=== PATIENT | male | born 1940 | race Caucasian/White ===

== ENCOUNTER 2023-09-04 11:19 | Inpatient (IN) | payer MEDICARE ==
[2023-09-04] MEDS ORDERED: cefTRIAXone 2 GM Vial IVPUSH ONE (11:26)
[2023-09-04] MEDS ORDERED: Ondansetron 4 MG Tab.DIS PO PRN (11:29)
[2023-09-04] MEDS ORDERED: Sodium Chloride 0.9% 10 ML Syringe FLUSH PRN (11:29)
[2023-09-04] MEDS ORDERED: Ondansetron 4 MG/2 ML SDV IV PRN (11:29)
[2023-09-04 12:18] LABS: BASOPHILS PERCENT AUTO 0.2 % (0.2-1.2); EOSINOPHILS PERCENT AUTO 0.1 % (0.0-4.0); HEMATOCRIT 38.2 % (40.0-52.0); HEMOGLOBIN 12.7 g/dL (14.0-18.0); LYMPHOCYTES ABSOLUTE AUTO 0.9 x10^3/uL (1.0-4.8); LYMPHOCYTES PERCENT AUTO 4.5 % (25.0-50.0); MEAN CORPUSCULAR HEMOGLOBIN 34.1 pg (26.0-32.0); MEAN CORPUSCULAR HGB CONC 33.2 g/dL (32.0-36.0); MEAN CORPUSCULAR VOLUME 102.7 fL (78.0-93.0); MONOCYTES ABSOLUTE AUTO 1.3 x10^3/uL (0.0-0.8); MONOCYTES PERCENT AUTO 6.8 % (2.0-11.0); NEUTROPHILS ABSOLUTE AUTO 17.2 x10^3/uL (1.8-7.7); NEUTROPHILS PERCENT AUTO 87.9 % (50.0-80.0); PLATELET COUNT,PLT 202 x10^3/uL (130-400); RED BLOOD CELL COUNT 3.72 x10^6/uL (4.5-6.0)
[2023-09-04] MEDS: Acetaminophen 325 MG Tab PO PRN ×2 (12:32→17:38)
[2023-09-04 12:33] LABS: WHITE BLOOD CELL COUNT,WBC 19.6 x10^3/uL (4.0-10.0)
[2023-09-04 12:36] LABS: A/G RATIO 0.89; ALANINE AMINOTRANSFERASE,ALT 18 U/L (16-63); ALBUMIN 3.2 g/dL (3.4-5.0); ALKALINE PHOSPHATASE 95 U/L (46-116); ANION GAP 12.9 mmol/L (5-15); ASPARTATE AMNIOTRANSFERASE,AST 17 U/L (15-37); BILIRUBIN TOTAL 3.1 mg/dL (0.2-1.0); BLOOD UREA NITROGEN,BUN 29 mg/dL (7-18); C-REACTIVE PROTEIN 14.92 mg/dL (<=0.50); CALCIUM 9.7 mg/dL (8.5-10.1); CARBON DIOXIDE,CO2 28 mmol/L (21-32); CHLORIDE,CL 103 mmol/L (98-107); CREATININE 1.2 mg/dL (0.70-1.30); ESTIMATED GFR 60 mL/min (>=60); GLUCOSE RANDOM 110 mg/dL (70-99); MAGNESIUM 2.1 mg/dL (1.8-2.4); POTASSIUM,K 3.9 mmol/L (3.5-5.1); PROTEIN TOTAL,TP 6.8 g/dL (6.4-8.2); SODIUM,NA 140 mmol/L (136-145)
[2023-09-04 12:55] LABS: APPEARANCE,URINE TURBID (CLEAR); BILIRUBIN,URINE LARGE (NEGATIVE); COLOR,URINE BROWN (YELLOW); GLUCOSE,URINE 100 mg/dL (NEGATIVE); KETONES,URINE 15 mg/dL (NEGATIVE); LEUKOCYTE ESTERASE,URINE LARGE (NEGATIVE); NITRITE,URINE POSITIVE (NEGATIVE); OCCULT BLOOD,URINE LARGE (NEGATIVE); PH,URINE 5.5 (5.0-8.0); PROTEIN,URINE >=300 mg/dL (NEGATIVE); UROBILINOGEN,URINE >=8.0 EU/dL (0.2)
[2023-09-04 13:01] LABS: CORONAVIRUS COVID-19 NAA NEGATIVE (NEGATIVE); INFLUENZA A NAA NEGATIVE (NEGATIVE); INFLUENZA B NAA NEGATIVE (NEGATIVE); RESPIRATORY SYNCYTIAL VIR NAA NEGATIVE (NEGATIVE)
[2023-09-04 13:06] LABS: RBC,URINE >100 /HPF (NOT SEEN); WBC,URINE >100 /HPF (NOT SEEN)
[2023-09-04 13:07] LABS: AMORPHOUS SEDIMENT,URINE OCCASIONAL; BACTERIA,URINE MANY /HPF (NOT SEEN); MUCUS,URINE MODERATE /LPF (NOT SEEN); SQUAMOUS EPITHELIAL CELLS,UR RARE /HPF (NOT SEEN)
[2023-09-04] MEDS ORDERED: Sodium Chloride 0.9% 1,000 ML IV SCH (13:45)
[2023-09-04 13:57] LABS: LACTIC ACID 1.3 mmol/L (0.4-2.0)
[2023-09-04] MEDS: Tamsulosin 0.4 MG Cap.ER PO SCH (17:37)
[2023-09-04] MEDS: Finasteride 5 MG Tab PO SCH (17:38)
[2023-09-04] MEDS: Simvastatin 20 MG Tab PO SCH (20:19)
[2023-09-05 07:15] LABS: BASOPHILS PERCENT AUTO 0.1 % (0.2-1.2); EOSINOPHILS ABSOLUTE AUTO 0.1 x10^3/uL (0.0-0.5); EOSINOPHILS PERCENT AUTO 0.7 % (0.0-4.0); HEMATOCRIT 33.6 % (40.0-52.0); HEMOGLOBIN 11.3 g/dL (14.0-18.0); IMMATURE GRAN ABSOLUTE AUTO 0.09 x10^3/uL (0.00-0.07); LYMPHOCYTES ABSOLUTE AUTO 1.3 x10^3/uL (1.0-4.8); MEAN CORPUSCULAR HEMOGLOBIN 34.3 pg (26.0-32.0); MEAN CORPUSCULAR HGB CONC 33.6 g/dL (32.0-36.0); MEAN CORPUSCULAR VOLUME 102.1 fL (78.0-93.0); MONOCYTES ABSOLUTE AUTO 1.3 x10^3/uL (0.0-0.8); MONOCYTES PERCENT AUTO 7.7 % (2.0-11.0); NEUTROPHILS ABSOLUTE AUTO 13.8 x10^3/uL (1.8-7.7); PLATELET COUNT,PLT 172 x10^3/uL (130-400); RED BLOOD CELL COUNT 3.29 x10^6/uL (4.5-6.0); WHITE BLOOD CELL COUNT,WBC 16.6 x10^3/uL (4.0-10.0)
[2023-09-05 07:38] LABS: A/G RATIO 0.75; ALBUMIN 2.4 g/dL (3.4-5.0); BILIRUBIN TOTAL 1.6 mg/dL (0.2-1.0); CALCIUM 9.2 mg/dL (8.5-10.1); EST CRCL DRUG DOSING (CG) 49.54 mL/min; POTASSIUM,K 3.9 mmol/L (3.5-5.1); PROTEIN TOTAL,TP 5.6 g/dL (6.4-8.2)
[2023-09-05 07:40] LABS: BILIRUBIN DIRECT 0.44 mg/dL (0.00-0.20); C-REACTIVE PROTEIN 16.83 mg/dL (<=0.50)
[2023-09-05 07:44] LABS: ANION GAP 11.9 mmol/L (5-15)
[2023-09-05] MEDS: Metoprolol Tartrate 50 MG Tab PO SCH (10:29)
[2023-09-05] MEDS: Finasteride 5 MG Tab PO SCH (10:32)
[2023-09-05] MEDS: Tamsulosin 0.4 MG Cap.ER PO SCH (10:32)
[2023-09-05] MEDS: cefTRIAXone 1 GM Vial IVPUSH SCH (10:35)
[2023-09-05] MEDS: Miconazole 2% Top Powder 45 GM Container TOP SCH ×2 (10:43→21:01)
[2023-09-05] MEDS: Acetaminophen 325 MG Tab PO PRN (21:00)
[2023-09-05] MEDS: Simvastatin 20 MG Tab PO SCH (21:00)
[2023-09-05] MEDS: amLODIPine 5 MG Tab PO SCH (21:01)
[2023-09-06 08:23] LABS: BASOPHILS ABSOLUTE AUTO 0.1 x10^3/uL (0.0-0.2); BASOPHILS PERCENT AUTO 0.4 % (0.2-1.2); EOSINOPHILS ABSOLUTE AUTO 0.2 x10^3/uL (0.0-0.5); EOSINOPHILS PERCENT AUTO 1.7 % (0.0-4.0); HEMATOCRIT 36.3 % (40.0-52.0); HEMOGLOBIN 12.2 g/dL (14.0-18.0); IMMATURE GRAN ABSOLUTE AUTO 0.08 x10^3/uL (0.00-0.07); LYMPHOCYTES ABSOLUTE AUTO 1.1 x10^3/uL (1.0-4.8); LYMPHOCYTES PERCENT AUTO 9.4 % (25.0-50.0); MEAN CORPUSCULAR HEMOGLOBIN 34.3 pg (26.0-32.0); MEAN CORPUSCULAR HGB CONC 33.6 g/dL (32.0-36.0); MONOCYTES ABSOLUTE AUTO 1.2 x10^3/uL (0.0-0.8); MONOCYTES PERCENT AUTO 10.9 % (2.0-11.0); NEUTROPHILS ABSOLUTE AUTO 8.6 x10^3/uL (1.8-7.7); NEUTROPHILS PERCENT AUTO 76.9 % (50.0-80.0); PLATELET COUNT,PLT 189 x10^3/uL (130-400); RED BLOOD CELL COUNT 3.56 x10^6/uL (4.5-6.0); WHITE BLOOD CELL COUNT,WBC 11.2 x10^3/uL (4.0-10.0)
[2023-09-06 08:45] LABS: A/G RATIO 0.64; ALBUMIN 2.3 g/dL (3.4-5.0); CALCIUM 9.4 mg/dL (8.5-10.1); CREATININE 0.9 mg/dL (0.70-1.30); EST CRCL DRUG DOSING (CG) 55.05 mL/min; POTASSIUM,K 4.2 mmol/L (3.5-5.1); PROTEIN TOTAL,TP 5.9 g/dL (6.4-8.2)
[2023-09-06 08:46] LABS: ANION GAP 9.2 mmol/L (5-15)
[2023-09-06] MEDS: Tamsulosin 0.4 MG Cap.ER PO SCH (09:01)
[2023-09-06] MEDS: Finasteride 5 MG Tab PO SCH (09:02)
[2023-09-06] MEDS: Metoprolol Tartrate 50 MG Tab PO SCH (09:03)
[2023-09-06] MEDS: cefTRIAXone 1 GM Vial IVPUSH SCH (09:05)
[2023-09-06] MEDS: Miconazole 2% Top Powder 45 GM Container TOP SCH ×2 (09:12→20:39)
[2023-09-06] MEDS: Simvastatin 20 MG Tab PO SCH (20:39)
[2023-09-06] MEDS: amLODIPine 5 MG Tab PO SCH (20:39)
[2023-09-07] MEDS: cefTRIAXone 1 GM Vial IVPUSH SCH (08:43)
[2023-09-07] MEDS: Metoprolol Tartrate 50 MG Tab PO SCH (08:48)
[2023-09-07] MEDS: Tamsulosin 0.4 MG Cap.ER PO SCH (08:48)
[2023-09-07] MEDS: Finasteride 5 MG Tab PO SCH (08:50)
[2023-09-07] MEDS: Miconazole 2% Top Powder 45 GM Container TOP SCH ×2 (08:52→20:14)
[2023-09-07] MEDS: amLODIPine 5 MG Tab PO SCH (20:14)
[2023-09-07] MEDS: Simvastatin 20 MG Tab PO SCH (20:14)
[2023-09-07] MEDS: Acetaminophen 325 MG Tab PO PRN (20:14)
[2023-09-07] MEDS ORDERED: Enalapril 5 MG Tab PO ONE (20:15)
[2023-09-08] MEDS ORDERED: Amoxicillin/Clavulanate K 875-125 MG Tab PO SCH (07:00)
[2023-09-08 07:09] LABS: BASOPHILS ABSOLUTE AUTO 0.1 x10^3/uL (0.0-0.2); BASOPHILS PERCENT AUTO 0.5 % (0.2-1.2); EOSINOPHILS ABSOLUTE AUTO 0.3 x10^3/uL (0.0-0.5); EOSINOPHILS PERCENT AUTO 2.9 % (0.0-4.0); HEMATOCRIT 34.4 % (40.0-52.0); HEMOGLOBIN 11.8 g/dL (14.0-18.0); IMMATURE GRAN ABSOLUTE AUTO 0.13 x10^3/uL (0.00-0.07); LYMPHOCYTES ABSOLUTE AUTO 1.4 x10^3/uL (1.0-4.8); LYMPHOCYTES PERCENT AUTO 12.8 % (25.0-50.0); MEAN CORPUSCULAR HEMOGLOBIN 34.8 pg (26.0-32.0); MEAN CORPUSCULAR HGB CONC 34.3 g/dL (32.0-36.0); MEAN CORPUSCULAR VOLUME 101.5 fL (78.0-93.0); MONOCYTES ABSOLUTE AUTO 1.3 x10^3/uL (0.0-0.8); MONOCYTES PERCENT AUTO 11.6 % (2.0-11.0); NEUTROPHILS ABSOLUTE AUTO 7.8 x10^3/uL (1.8-7.7); PLATELET COUNT,PLT 193 x10^3/uL (130-400); RED BLOOD CELL COUNT 3.39 x10^6/uL (4.5-6.0); WHITE BLOOD CELL COUNT,WBC 10.9 x10^3/uL (4.0-10.0)
[2023-09-08 07:49] LABS: A/G RATIO 0.61; ALBUMIN 2.2 g/dL (3.4-5.0); BILIRUBIN TOTAL 0.8 mg/dL (0.2-1.0); CALCIUM 9.8 mg/dL (8.5-10.1); CREATININE 0.9 mg/dL (0.70-1.30); EST CRCL DRUG DOSING (CG) 55.05 mL/min; POTASSIUM,K 4.3 mmol/L (3.5-5.1); PROTEIN TOTAL,TP 5.8 g/dL (6.4-8.2)
[2023-09-08 07:50] LABS: ANION GAP 10.3 mmol/L (5-15)
[2023-09-08] MEDS: Amoxicillin/Clavulanate K 875-125 MG Tab PO SCH ×2 (09:09→20:21)
[2023-09-08] MEDS: Finasteride 5 MG Tab PO SCH (09:09)
[2023-09-08] MEDS: Tamsulosin 0.4 MG Cap.ER PO SCH (09:09)
[2023-09-08] MEDS: Miconazole 2% Top Powder 45 GM Container TOP SCH ×2 (09:10→20:24)
[2023-09-08] MEDS: Simvastatin 20 MG Tab PO SCH (20:21)
[2023-09-08] MEDS: amLODIPine 5 MG Tab PO SCH (20:21)
[2023-09-09] MEDS: Amoxicillin/Clavulanate K 875-125 MG Tab PO SCH (09:09)
[2023-09-09] MEDS: Tamsulosin 0.4 MG Cap.ER PO SCH (09:11)
[2023-09-09] MEDS: Miconazole 2% Top Powder 45 GM Container TOP SCH (09:12)
[2023-09-09] MEDS: Finasteride 5 MG Tab PO SCH (09:12)
[2023-09-09 13:41] VITALS: BP 133/62; PULSE 64
[2023-09-09] MEDS ORDERED: Apixaban 2.5 MG Tab PO SCH (21:00)
== END 2023-09-09 13:55 | disposition swing bed (61) | DRG 872 ==
LOC: VM.MS 11:19
PROVIDERS: ADMIT Internal Medicine; ATTEND Internal Medicine
DX: A41.51 Sepsis due to Escherichia coli [E. coli] (principal); I50.32 Chronic diastolic (congestive) heart failure; N30.01 Acute cystitis with hematuria; A41.50 Gram-negative sepsis, unspecified; M45.9 Ankylosing spondylitis of unspecified sites in spine; N21.0 Calculus in bladder; I25.10 Atherosclerotic heart disease of native coronary artery without angina pectoris; I48.0 Paroxysmal atrial fibrillation; M54.41 Lumbago with sciatica, right side; G89.29 Other chronic pain; M54.42 Lumbago with sciatica, left side; E78.5 Hyperlipidemia, unspecified; E66.01 Morbid (severe) obesity due to excess calories; I11.0 Hypertensive heart disease with heart failure; J45.20 Mild intermittent asthma, uncomplicated; G47.33 Obstructive sleep apnea (adult) (pediatric); N40.1 Benign prostatic hyperplasia with lower urinary tract symptoms; R33.8 Other retention of urine; Z79.899 Other long term (current) drug therapy; Z79.01 Long term (current) use of anticoagulants; Z88.5 Allergy status to narcotic agent; Z88.8 Allergy status to other drugs, medicaments and biological substances; Z95.1 Presence of aortocoronary bypass graft; Z98.890 Other specified postprocedural states; Z68.36 Body mass index [BMI] 36.0-36.9, adult; Z98.49 Cataract extraction status, unspecified eye; Z87.891 Personal history of nicotine dependence
CPT/HCPCS: 0241U; 36415; 51798; 71046; 80053; 81001; 82140; 82248; 82947; 83605; 83735; 85025; 86140; 87040; 87086; 87088; 87186; 95851-GO; 97110-GP; 97116-GP; 97162-GP; 97166-GO; 97535-GO; A9270-GY; J0696; J3490; J7030

== ENCOUNTER 2023-09-09 11:52 | Inpatient (IN) | payer MEDICARE ==
[2023-09-09] MEDS ORDERED: Ondansetron 4 MG Tab.DIS PO PRN (11:55)
[2023-09-09] MEDS ORDERED: Acetaminophen 325 MG Tab PO PRN (11:55)
[2023-09-09] MEDS: Miconazole 2% Top Powder 45 GM Container TOP SCH (20:18)
[2023-09-09] MEDS: Apixaban 2.5 MG Tab PO SCH (20:19)
[2023-09-09] MEDS: Amoxicillin/Clavulanate K 875-125 MG Tab PO SCH (20:19)
[2023-09-09] MEDS: Simvastatin 10 MG Tab PO SCH (20:22)
[2023-09-09] MEDS ORDERED: amLODIPine 2.5 MG Tab PO SCH (21:00)
[2023-09-10] MEDS: Apixaban 2.5 MG Tab PO SCH ×3 (08:50→20:54)
[2023-09-10] MEDS: Finasteride 5 MG Tab PO SCH (08:51)
[2023-09-10] MEDS: Amoxicillin/Clavulanate K 875-125 MG Tab PO SCH ×2 (08:51→19:28)
[2023-09-10] MEDS: Tamsulosin 0.4 MG Cap.ER PO SCH (08:51)
[2023-09-10] MEDS: Miconazole 2% Top Powder 45 GM Container TOP SCH ×3 (08:53→20:54)
[2023-09-10] MEDS: AMLODIPINE PO SCH ×4 (19:30→20:54)
[2023-09-10] MEDS: Simvastatin 10 MG Tab PO SCH ×2 (19:30→20:55)
[2023-09-11 07:04] LABS: BASOPHILS ABSOLUTE AUTO 0.1 x10^3/uL (0.0-0.2); BASOPHILS PERCENT AUTO 0.7 % (0.2-1.2); EOSINOPHILS ABSOLUTE AUTO 0.5 x10^3/uL (0.0-0.5); EOSINOPHILS PERCENT AUTO 5.4 % (0.0-4.0); HEMATOCRIT 36.3 % (40.0-52.0); HEMOGLOBIN 12.1 g/dL (14.0-18.0); IMMATURE GRAN ABSOLUTE AUTO 0.26 x10^3/uL (0.00-0.07); LYMPHOCYTES ABSOLUTE AUTO 1.5 x10^3/uL (1.0-4.8); LYMPHOCYTES PERCENT AUTO 18.3 % (25.0-50.0); MEAN CORPUSCULAR HGB CONC 33.3 g/dL (32.0-36.0); MONOCYTES ABSOLUTE AUTO 0.6 x10^3/uL (0.0-0.8); MONOCYTES PERCENT AUTO 7.2 % (2.0-11.0); NEUTROPHILS ABSOLUTE AUTO 5.5 x10^3/uL (1.8-7.7); NEUTROPHILS PERCENT AUTO 65.3 % (50.0-80.0); PLATELET COUNT,PLT 285 x10^3/uL (130-400); RED BLOOD CELL COUNT 3.56 x10^6/uL (4.5-6.0); WHITE BLOOD CELL COUNT,WBC 8.4 x10^3/uL (4.0-10.0)
[2023-09-11 07:14] LABS: CALCIUM 9.9 mg/dL (8.5-10.1); CREATININE 0.9 mg/dL (0.70-1.30); EST CRCL DRUG DOSING (CG) 52.99 mL/min; POTASSIUM,K 4.3 mmol/L (3.5-5.1)
[2023-09-11 07:17] LABS: ANION GAP 11.3 mmol/L (5-15)
[2023-09-11] MEDS: Apixaban 2.5 MG Tab PO SCH ×2 (08:54→20:51)
[2023-09-11] MEDS: Amoxicillin/Clavulanate K 875-125 MG Tab PO SCH ×2 (08:57→20:50)
[2023-09-11] MEDS: Tamsulosin 0.4 MG Cap.ER PO SCH (08:57)
[2023-09-11] MEDS: Miconazole 2% Top Powder 45 GM Container TOP SCH ×2 (08:58→20:51)
[2023-09-11] MEDS: Finasteride 5 MG Tab PO SCH (08:58)
[2023-09-11] MEDS: Simvastatin 10 MG Tab PO SCH (20:51)
[2023-09-11] MEDS: AMLODIPINE PO SCH ×2 (20:51)
[2023-09-12] MEDS: Amoxicillin/Clavulanate K 875-125 MG Tab PO SCH ×2 (08:28→17:50)
[2023-09-12] MEDS: Apixaban 2.5 MG Tab PO SCH ×2 (08:30→20:21)
[2023-09-12] MEDS: Tamsulosin 0.4 MG Cap.ER PO SCH (08:30)
[2023-09-12] MEDS: Miconazole 2% Top Powder 45 GM Container TOP SCH ×2 (08:31→20:29)
[2023-09-12] MEDS: Finasteride 5 MG Tab PO SCH (08:31)
[2023-09-12] MEDS ORDERED: Bisacodyl 10 MG Supp RECTAL PRN (10:31)
[2023-09-12] MEDS: Sennosides/Docusate Sodium 50-8.6 MG Tab PO SCH ×2 (11:44→20:30)
[2023-09-12] MEDS: AMLODIPINE PO SCH ×2 (20:20)
[2023-09-12] MEDS: Simvastatin 10 MG Tab PO SCH (20:21)
[2023-09-13] MEDS: Amoxicillin/Clavulanate K 875-125 MG Tab PO SCH ×2 (08:47→17:56)
[2023-09-13] MEDS: Tamsulosin 0.4 MG Cap.ER PO SCH (08:48)
[2023-09-13] MEDS: Apixaban 2.5 MG Tab PO SCH ×2 (08:49→20:26)
[2023-09-13] MEDS: Sennosides/Docusate Sodium 50-8.6 MG Tab PO SCH ×2 (08:49→20:26)
[2023-09-13] MEDS: Finasteride 5 MG Tab PO SCH (08:50)
[2023-09-13] MEDS: Miconazole 2% Top Powder 45 GM Container TOP SCH ×2 (08:51→20:26)
[2023-09-13] MEDS: AMLODIPINE PO SCH ×2 (20:26)
[2023-09-13] MEDS: Simvastatin 10 MG Tab PO SCH (20:27)
[2023-09-14] MEDS: Miconazole 2% Top Powder 45 GM Container TOP SCH ×2 (08:32→20:33)
[2023-09-14] MEDS: Amoxicillin/Clavulanate K 875-125 MG Tab PO SCH ×2 (08:32→17:25)
[2023-09-14] MEDS: Apixaban 2.5 MG Tab PO SCH ×2 (08:34→20:32)
[2023-09-14] MEDS: Finasteride 5 MG Tab PO SCH (08:34)
[2023-09-14] MEDS: Tamsulosin 0.4 MG Cap.ER PO SCH (08:35)
[2023-09-14] MEDS: Sennosides/Docusate Sodium 50-8.6 MG Tab PO SCH ×2 (08:35→20:33)
[2023-09-14] MEDS: AMLODIPINE PO SCH ×2 (20:32)
[2023-09-14] MEDS: Simvastatin 10 MG Tab PO SCH (20:33)
[2023-09-15] MEDS: Finasteride 5 MG Tab PO SCH (08:13)
[2023-09-15] MEDS: Apixaban 2.5 MG Tab PO SCH ×2 (08:13→20:48)
[2023-09-15] MEDS: Tamsulosin 0.4 MG Cap.ER PO SCH (08:14)
[2023-09-15] MEDS: Amoxicillin/Clavulanate K 875-125 MG Tab PO SCH ×2 (08:14→17:50)
[2023-09-15] MEDS: Sennosides/Docusate Sodium 50-8.6 MG Tab PO SCH ×2 (08:14→20:49)
[2023-09-15] MEDS: Miconazole 2% Top Powder 45 GM Container TOP SCH ×2 (08:14→20:50)
[2023-09-15] MEDS: AMLODIPINE PO SCH ×2 (20:48)
[2023-09-15] MEDS: Simvastatin 10 MG Tab PO SCH (20:49)
[2023-09-16] MEDS: Miconazole 2% Top Powder 45 GM Container TOP SCH (08:54)
[2023-09-16] MEDS: Amoxicillin/Clavulanate K 875-125 MG Tab PO SCH (08:55)
[2023-09-16] MEDS: Sennosides/Docusate Sodium 50-8.6 MG Tab PO SCH (08:55)
[2023-09-16] MEDS: Apixaban 2.5 MG Tab PO SCH (08:55)
[2023-09-16] MEDS: Tamsulosin 0.4 MG Cap.ER PO SCH (08:55)
[2023-09-16] MEDS: Finasteride 5 MG Tab PO SCH (08:55)
[2023-09-16 12:56] VITALS: BP 130/66; PULSE 65
== END 2023-09-16 14:25 | disposition home health service (06) | DRG 948 ==
LOC: VM.MS 14:01
PROVIDERS: ADMIT Internal Medicine; ATTEND Internal Medicine
DX: R53.1 Weakness (principal); N39.0 Urinary tract infection, site not specified; I50.30 Unspecified diastolic (congestive) heart failure; Z68.41 Body mass index [BMI] 40.0-44.9, adult; I48.91 Unspecified atrial fibrillation; N40.1 Benign prostatic hyperplasia with lower urinary tract symptoms; I25.10 Atherosclerotic heart disease of native coronary artery without angina pectoris; E66.01 Morbid (severe) obesity due to excess calories; M45.9 Ankylosing spondylitis of unspecified sites in spine; R00.1 Bradycardia, unspecified; I11.0 Hypertensive heart disease with heart failure; R33.9 Retention of urine, unspecified; E78.5 Hyperlipidemia, unspecified; M54.40 Lumbago with sciatica, unspecified side; G89.29 Other chronic pain; M47.819 Spondylosis without myelopathy or radiculopathy, site unspecified; G31.84 Mild cognitive impairment of uncertain or unknown etiology; Z79.01 Long term (current) use of anticoagulants; Z98.890 Other specified postprocedural states
CPT/HCPCS: 36415; 80048; 84443; 85025; 95851-GO; 97110-GP; 97116-GP; 97530-GO; 97530-GP; 97535-GO; A9270-GY

== ENCOUNTER 2023-12-04 21:54 | Inpatient (IN) | payer MEDICARE ==
[2023-12-04 22:25] LABS: BASOPHILS PERCENT AUTO 0.3 % (0.2-1.2); EOSINOPHILS ABSOLUTE AUTO 0.2 x10^3/uL (0.0-0.5); EOSINOPHILS PERCENT AUTO 1.8 % (0.0-4.0); HEMATOCRIT 39.9 % (40.0-52.0); HEMOGLOBIN 13.6 g/dL (14.0-18.0); IMMATURE GRAN ABSOLUTE AUTO 0.06 x10^3/uL (0.00-0.07); LYMPHOCYTES ABSOLUTE AUTO 0.8 x10^3/uL (1.0-4.8); LYMPHOCYTES PERCENT AUTO 6.7 % (25.0-50.0); MEAN CORPUSCULAR HEMOGLOBIN 33.2 pg (26.0-32.0); MEAN CORPUSCULAR HGB CONC 34.1 g/dL (32.0-36.0); MEAN CORPUSCULAR VOLUME 97.3 fL (78.0-93.0); MONOCYTES ABSOLUTE AUTO 0.9 x10^3/uL (0.0-0.8); NEUTROPHILS ABSOLUTE AUTO 9.5 x10^3/uL (1.8-7.7); NEUTROPHILS PERCENT AUTO 82.7 % (50.0-80.0); PLATELET COUNT,PLT 199 x10^3/uL (130-400); WHITE BLOOD CELL COUNT,WBC 11.5 x10^3/uL (4.0-10.0)
[2023-12-04] MEDS: Sodium Chloride 0.9% 1,000 ML IV ONE (22:25)
[2023-12-04 22:42] LABS: A/G RATIO 0.91; ALANINE AMINOTRANSFERASE,ALT 18 U/L (16-63); ALBUMIN 3.2 g/dL (3.4-5.0); ALKALINE PHOSPHATASE 110 U/L (46-116); ASPARTATE AMNIOTRANSFERASE,AST 20 U/L (15-37); BILIRUBIN TOTAL 1.1 mg/dL (0.2-1.0); BLOOD UREA NITROGEN,BUN 25 mg/dL (7-18); C-REACTIVE PROTEIN 3.31 mg/dL (<=0.50); CALCIUM 9.6 mg/dL (8.5-10.1); CARBON DIOXIDE,CO2 25 mmol/L (21-32); CHLORIDE,CL 104 mmol/L (98-107); CREATININE 1.3 mg/dL (0.70-1.30); GLUCOSE RANDOM 181 mg/dL (70-99); POTASSIUM,K 4.1 mmol/L (3.5-5.1); PROTEIN TOTAL,TP 6.7 g/dL (6.4-8.2); SODIUM,NA 141 mmol/L (136-145)
[2023-12-04 22:44] LABS: ANION GAP 16.1 mmol/L (5-15); ESTIMATED GFR 55 mL/min (>=60)
[2023-12-04 22:59] LABS: CORONAVIRUS COVID-19 NAA NEGATIVE (NEGATIVE); INFLUENZA A NAA NEGATIVE (NEGATIVE); INFLUENZA B NAA NEGATIVE (NEGATIVE); RESPIRATORY SYNCYTIAL VIR NAA NEGATIVE (NEGATIVE)
[2023-12-04 23:07] LABS: BILIRUBIN,URINE NEGATIVE (NEGATIVE); COLOR,URINE DARK YELLOW (YELLOW); GLUCOSE,URINE NEGATIVE (NEGATIVE); KETONES,URINE NEGATIVE (NEGATIVE); LEUKOCYTE ESTERASE,URINE NEGATIVE (NEGATIVE); NITRITE,URINE NEGATIVE (NEGATIVE); OCCULT BLOOD,URINE NEGATIVE (NEGATIVE); PROTEIN,URINE NEGATIVE (NEGATIVE); UROBILINOGEN,URINE 0.2 EU/dL (0.2)
[2023-12-04 23:08] LABS: APPEARANCE,URINE CLEAR (CLEAR)
[2023-12-04] MEDS: cefTRIAXone 1 GM Vial IVPUSH ONE (23:50)
[2023-12-04] MEDS ORDERED: Acetaminophen 325 MG Tab PO PRN (23:51)
[2023-12-05] MEDS ORDERED: Miconazole 2% Top Powder 45 GM Container TOP PRN (00:13)
[2023-12-05] MEDS ORDERED: Albuterol HFA 18 Gm Inhaler INH PRN (00:13)
[2023-12-05] MEDS ORDERED: Diclofenac Sodium 1% Gel 100 GM Tube TOP PRN (00:13)
[2023-12-05] MEDS: Azithromycin 250 MG Tab PO ONE (01:00)
[2023-12-05] MEDS: Sodium Chloride 0.9% 1,000 ML IV SCH (01:00)
[2023-12-05 06:52] LABS: BASOPHILS PERCENT AUTO 0.3 % (0.2-1.2); EOSINOPHILS ABSOLUTE AUTO 0.1 x10^3/uL (0.0-0.5); EOSINOPHILS PERCENT AUTO 0.4 % (0.0-4.0); HEMATOCRIT 35.3 % (40.0-52.0); HEMOGLOBIN 11.6 g/dL (14.0-18.0); IMMATURE GRAN ABSOLUTE AUTO 0.07 x10^3/uL (0.00-0.07); LYMPHOCYTES ABSOLUTE AUTO 1.4 x10^3/uL (1.0-4.8); LYMPHOCYTES PERCENT AUTO 9.8 % (25.0-50.0); MEAN CORPUSCULAR HEMOGLOBIN 32.6 pg (26.0-32.0); MEAN CORPUSCULAR HGB CONC 32.9 g/dL (32.0-36.0); MEAN CORPUSCULAR VOLUME 99.2 fL (78.0-93.0); MONOCYTES ABSOLUTE AUTO 1.4 x10^3/uL (0.0-0.8); MONOCYTES PERCENT AUTO 9.4 % (2.0-11.0); NEUTROPHILS ABSOLUTE AUTO 11.6 x10^3/uL (1.8-7.7); NEUTROPHILS PERCENT AUTO 79.6 % (50.0-80.0); PLATELET COUNT,PLT 183 x10^3/uL (130-400); RED BLOOD CELL COUNT 3.56 x10^6/uL (4.5-6.0); WHITE BLOOD CELL COUNT,WBC 14.6 x10^3/uL (4.0-10.0)
[2023-12-05 07:17] LABS: CREATININE 1.2 mg/dL (0.70-1.30); EST CRCL DRUG DOSING (CG) 41.28 mL/min
[2023-12-05] MEDS ORDERED: cefTRIAXone 1 GM Vial IVPUSH SCH ×2 (09:00→21:00)
[2023-12-05] MEDS: Cyanocobalamin (Vitamin B12) 1,000 MCG Tab PO SCH (09:19)
[2023-12-05] MEDS: Multivitamin Tab PO SCH (09:19)
[2023-12-05] MEDS: Finasteride 5 MG Tab PO SCH (09:19)
[2023-12-05] MEDS: Furosemide 20 MG Tab PO SCH (09:19)
[2023-12-05] MEDS: Apixaban 2.5 MG Tab PO SCH (09:19)
[2023-12-05] MEDS: Tamsulosin 0.4 MG Cap.ER PO SCH (09:19)
[2023-12-05] MEDS: Folic Acid 1 MG Tab PO SCH (09:19)
[2023-12-05] MEDS: Fluticasone Propionate Nasal Spray 9.9 ML BOTTLE NASBOTH SCH (09:20)
[2023-12-05] MEDS: Albuterol/Ipratropium 3.0-0.5 MG/3 ML Neb Soln NEB SCH (09:33)
[2023-12-05] MEDS ORDERED: Azithromycin 250 MG Tab PO SCH (13:00)
[2023-12-05] MEDS: cefTRIAXone 1 GM Vial IVPUSH SCH (13:36)
[2023-12-05] MEDS: Azithromycin 250 MG Tab PO SCH (13:36)
[2023-12-05] MEDS: Simvastatin 10 MG Tab PO SCH (20:30)
[2023-12-05] MEDS ORDERED: amLODIPine 5 MG Tab PO SCH (21:00)
[2023-12-06 07:45] LABS: BASOPHILS PERCENT AUTO 0.4 % (0.2-1.2); EOSINOPHILS ABSOLUTE AUTO 0.5 x10^3/uL (0.0-0.5); EOSINOPHILS PERCENT AUTO 4.7 % (0.0-4.0); HEMATOCRIT 36.7 % (40.0-52.0); HEMOGLOBIN 12.3 g/dL (14.0-18.0); IMMATURE GRAN ABSOLUTE AUTO 0.05 x10^3/uL (0.00-0.07); LYMPHOCYTES ABSOLUTE AUTO 1.7 x10^3/uL (1.0-4.8); LYMPHOCYTES PERCENT AUTO 16.4 % (25.0-50.0); MEAN CORPUSCULAR HEMOGLOBIN 33.1 pg (26.0-32.0); MEAN CORPUSCULAR HGB CONC 33.5 g/dL (32.0-36.0); MEAN CORPUSCULAR VOLUME 98.7 fL (78.0-93.0); MONOCYTES ABSOLUTE AUTO 1.1 x10^3/uL (0.0-0.8); MONOCYTES PERCENT AUTO 10.2 % (2.0-11.0); NEUTROPHILS PERCENT AUTO 67.8 % (50.0-80.0); PLATELET COUNT,PLT 176 x10^3/uL (130-400); RED BLOOD CELL COUNT 3.72 x10^6/uL (4.5-6.0); WHITE BLOOD CELL COUNT,WBC 10.3 x10^3/uL (4.0-10.0)
[2023-12-06 07:51] LABS: A/G RATIO 0.81; ALBUMIN 2.6 g/dL (3.4-5.0); BILIRUBIN TOTAL 1.2 mg/dL (0.2-1.0); CALCIUM 9.1 mg/dL (8.5-10.1); CREATININE 0.9 mg/dL (0.70-1.30); EST CRCL DRUG DOSING (CG) 55.05 mL/min; POTASSIUM,K 3.9 mmol/L (3.5-5.1); PROTEIN TOTAL,TP 5.8 g/dL (6.4-8.2)
[2023-12-06 07:52] LABS: ANION GAP 12.9 mmol/L (5-15)
[2023-12-07 09:08] LABS: BASOPHILS ABSOLUTE AUTO 0.1 x10^3/uL (0.0-0.2); BASOPHILS PERCENT AUTO 0.6 % (0.2-1.2); EOSINOPHILS ABSOLUTE AUTO 0.5 x10^3/uL (0.0-0.5); EOSINOPHILS PERCENT AUTO 5.5 % (0.0-4.0); HEMATOCRIT 36.2 % (40.0-52.0); IMMATURE GRAN ABSOLUTE AUTO 0.08 x10^3/uL (0.00-0.07); LYMPHOCYTES PERCENT AUTO 22.3 % (25.0-50.0); MEAN CORPUSCULAR HEMOGLOBIN 32.7 pg (26.0-32.0); MEAN CORPUSCULAR HGB CONC 33.1 g/dL (32.0-36.0); MEAN CORPUSCULAR VOLUME 98.6 fL (78.0-93.0); MONOCYTES ABSOLUTE AUTO 0.9 x10^3/uL (0.0-0.8); MONOCYTES PERCENT AUTO 10.3 % (2.0-11.0); NEUTROPHILS ABSOLUTE AUTO 5.3 x10^3/uL (1.8-7.7); NEUTROPHILS PERCENT AUTO 60.4 % (50.0-80.0); PLATELET COUNT,PLT 193 x10^3/uL (130-400); RED BLOOD CELL COUNT 3.67 x10^6/uL (4.5-6.0); WHITE BLOOD CELL COUNT,WBC 8.7 x10^3/uL (4.0-10.0)
[2023-12-07 09:18] LABS: A/G RATIO 0.76; ALBUMIN 2.5 g/dL (3.4-5.0); BILIRUBIN TOTAL 0.8 mg/dL (0.2-1.0); CALCIUM 9.3 mg/dL (8.5-10.1); EST CRCL DRUG DOSING (CG) 49.54 mL/min; POTASSIUM,K 3.8 mmol/L (3.5-5.1); PROTEIN TOTAL,TP 5.8 g/dL (6.4-8.2)
[2023-12-07 09:19] LABS: ANION GAP 14.8 mmol/L (5-15)
[2023-12-08 07:00] LABS: BASOPHILS ABSOLUTE AUTO 0.1 x10^3/uL (0.0-0.2); BASOPHILS PERCENT AUTO 0.6 % (0.2-1.2); EOSINOPHILS ABSOLUTE AUTO 0.5 x10^3/uL (0.0-0.5); HEMATOCRIT 39.3 % (40.0-52.0); IMMATURE GRAN ABSOLUTE AUTO 0.08 x10^3/uL (0.00-0.07); LYMPHOCYTES ABSOLUTE AUTO 1.9 x10^3/uL (1.0-4.8); MEAN CORPUSCULAR HEMOGLOBIN 32.5 pg (26.0-32.0); MEAN CORPUSCULAR HGB CONC 33.1 g/dL (32.0-36.0); MEAN CORPUSCULAR VOLUME 98.3 fL (78.0-93.0); MONOCYTES ABSOLUTE AUTO 0.7 x10^3/uL (0.0-0.8); MONOCYTES PERCENT AUTO 9.1 % (2.0-11.0); NEUTROPHILS ABSOLUTE AUTO 4.9 x10^3/uL (1.8-7.7); NEUTROPHILS PERCENT AUTO 60.3 % (50.0-80.0); PLATELET COUNT,PLT 210 x10^3/uL (130-400); WHITE BLOOD CELL COUNT,WBC 8.1 x10^3/uL (4.0-10.0)
[2023-12-08 07:23] LABS: A/G RATIO 0.72; ALBUMIN 2.6 g/dL (3.4-5.0); BILIRUBIN TOTAL 0.8 mg/dL (0.2-1.0); CALCIUM 9.4 mg/dL (8.5-10.1); CREATININE 0.9 mg/dL (0.70-1.30); EST CRCL DRUG DOSING (CG) 55.05 mL/min; POTASSIUM,K 3.9 mmol/L (3.5-5.1); PROTEIN TOTAL,TP 6.2 g/dL (6.4-8.2)
[2023-12-08 07:24] LABS: ANION GAP 12.9 mmol/L (5-15)
[2023-12-08 08:53] VITALS: BP 176/72; PULSE 63
[2023-12-08] MEDS: amLODIPine 5 MG Tab PO SCH (08:58)
[2023-12-08] MEDS: Furosemide 40 MG Tab PO SCH (08:59)
[2023-12-08] MEDS: Cefuroxime 250 MG Tab PO SCH (09:00)
[2023-12-08] MEDS: Azithromycin 250 MG Tab PO SCH (09:00)
[2023-12-08] MEDS ORDERED: Finasteride 5 MG Tab PO SCH (21:00)
== END 2023-12-08 10:15 | disposition home health service (06) | DRG 871 ==
LOC: VM.ED 21:54 → VM.MS 23:25
PROVIDERS: ADMIT Family Medicine; ATTEND Internal Medicine
DX: A41.9 Sepsis, unspecified organism (principal); I50.33 Acute on chronic diastolic (congestive) heart failure; J18.9 Pneumonia, unspecified organism; D84.9 Immunodeficiency, unspecified; I48.91 Unspecified atrial fibrillation; E66.9 Obesity, unspecified; J44.0 Chronic obstructive pulmonary disease with (acute) lower respiratory infection; I25.10 Atherosclerotic heart disease of native coronary artery without angina pectoris; E78.00 Pure hypercholesterolemia, unspecified; M19.90 Unspecified osteoarthritis, unspecified site; M45.9 Ankylosing spondylitis of unspecified sites in spine; E66.01 Morbid (severe) obesity due to excess calories; I11.0 Hypertensive heart disease with heart failure; I48.0 Paroxysmal atrial fibrillation; J45.20 Mild intermittent asthma, uncomplicated; N40.0 Benign prostatic hyperplasia without lower urinary tract symptoms; G31.84 Mild cognitive impairment of uncertain or unknown etiology; H91.90 Unspecified hearing loss, unspecified ear; G47.33 Obstructive sleep apnea (adult) (pediatric); Z88.8 Allergy status to other drugs, medicaments and biological substances; Z88.5 Allergy status to narcotic agent; Z79.899 Other long term (current) drug therapy; Z79.51 Long term (current) use of inhaled steroids; Z79.01 Long term (current) use of anticoagulants; Z68.37 Body mass index [BMI] 37.0-37.9, adult; Z95.1 Presence of aortocoronary bypass graft; Z98.890 Other specified postprocedural states; Z11.52 Encounter for screening for COVID-19; Z98.49 Cataract extraction status, unspecified eye; Z87.891 Personal history of nicotine dependence
CPT/HCPCS: 0241U; 36415; 71045; 71046; 80048; 80053; 81003; 83605; 83880; 84145; 84484; 85025; 86140; 87040; 87070; 87205; 93005; 93010; 94640; 96360; 97161-GP; 99284; 99285-25; A9270-GY; J0696; J7030; J7620-GY

== ENCOUNTER 2025-07-18 09:40 | Inpatient (IN) | payer MEDICARE ==
[2025-07-18] MEDS ORDERED: Sodium Chloride 0.9% 10 ML Syringe FLUSH PRN (11:48)
[2025-07-18] MEDS ORDERED: Ondansetron 4 MG Tab.DIS PO PRN (11:48)
[2025-07-18] MEDS: AMLODIPINE PO SCH (21:32)
[2025-07-18] MEDS: Formoterol/Mometasone 200-5 MCG 13 GM Inhaler INH SCH (21:34)
[2025-07-21 06:47] LABS: BASOPHILS ABSOLUTE AUTO 0.1 x10^3/uL (0.0-0.2); BASOPHILS PERCENT AUTO 0.7 % (0.2-1.2); EOSINOPHILS ABSOLUTE AUTO 0.5 x10^3/uL (0.0-0.5); EOSINOPHILS PERCENT AUTO 5.8 % (0.0-4.0); IMMATURE GRAN ABSOLUTE AUTO 0.09 x10^3/uL (0.00-0.07); IMMATURE GRAN PERCENT AUTO 1.10 % (0.00-0.43); LYMPHOCYTES ABSOLUTE AUTO 1.6 x10^3/uL (1.0-4.8); LYMPHOCYTES PERCENT AUTO 18.9 % (25.0-50.0); MONOCYTES ABSOLUTE AUTO 0.8 x10^3/uL (0.0-0.8); MONOCYTES PERCENT AUTO 9.6 % (2.0-11.0); NEUTROPHILS ABSOLUTE AUTO 5.3 x10^3/uL (1.8-7.7); NEUTROPHILS PERCENT AUTO 63.9 % (50.0-80.0); PLATELET COUNT,PLT 200 x10^3/uL (130-400); RED BLOOD CELL COUNT 4.00 x10^6/uL (4.5-6.0); WHITE BLOOD CELL COUNT,WBC 8.2 x10^3/uL (4.0-10.0)
[2025-07-21 07:05] LABS: BLOOD UREA NITROGEN,BUN 21.0 mg/dL (7-18); CARBON DIOXIDE,CO2 29.0 mmol/L (21-32); CHLORIDE,CL 107.0 mmol/L (98-107); CREATININE 0.8 mg/dL (0.70-1.30); EST CRCL DRUG DOSING (CG) 59.79 mL/min; ESTIMATED GFR 87.0 mL/min (>=60); GLUCOSE RANDOM 94.0 mg/dL (70-99); POTASSIUM,K 4.2 mmol/L (3.5-5.1); SODIUM,NA 142.0 mmol/L (136-145)
[2025-07-25 10:26] LABS: BASOPHILS ABSOLUTE AUTO 0.1 x10^3/uL (0.0-0.2); BASOPHILS PERCENT AUTO 0.5 % (0.2-1.2); EOSINOPHILS ABSOLUTE AUTO 0.4 x10^3/uL (0.0-0.5); EOSINOPHILS PERCENT AUTO 3.7 % (0.0-4.0); IMMATURE GRAN ABSOLUTE AUTO 0.06 x10^3/uL (0.00-0.07); IMMATURE GRAN PERCENT AUTO 0.60 % (0.00-0.43); LYMPHOCYTES ABSOLUTE AUTO 1.3 x10^3/uL (1.0-4.8); LYMPHOCYTES PERCENT AUTO 12.6 % (25.0-50.0); MONOCYTES ABSOLUTE AUTO 0.9 x10^3/uL (0.0-0.8); MONOCYTES PERCENT AUTO 8.8 % (2.0-11.0); NEUTROPHILS ABSOLUTE AUTO 7.4 x10^3/uL (1.8-7.7); NEUTROPHILS PERCENT AUTO 73.8 % (50.0-80.0); PLATELET COUNT,PLT 201 x10^3/uL (130-400); RED BLOOD CELL COUNT 4.04 x10^6/uL (4.5-6.0); WHITE BLOOD CELL COUNT,WBC 10.0 x10^3/uL (4.0-10.0)
[2025-07-25 10:40] LABS: BLOOD UREA NITROGEN,BUN 26.0 mg/dL (7-18); CARBON DIOXIDE,CO2 28.0 mmol/L (21-32); CHLORIDE,CL 104.0 mmol/L (98-107); CREATININE 1.0 mg/dL (0.70-1.30); EST CRCL DRUG DOSING (CG) 47.83 mL/min; GLUCOSE RANDOM 96.0 mg/dL (70-99); POTASSIUM,K 3.9 mmol/L (3.5-5.1); SODIUM,NA 141.0 mmol/L (136-145)
[2025-07-25 10:41] LABS: ESTIMATED GFR 74.0 mL/min (>=60)
[2025-07-29 10:14] VITALS: BP 104/56; PULSE 70
== END 2025-07-29 10:00 | DRG 948 ==
LOC: VM.MS 09:40 → UNDOADMIN 09:40 → VM.MS 12:50
PROVIDERS: ADMIT Internal Medicine; ATTEND Internal Medicine
DX: R53.1 Weakness (principal); G93.40 Encephalopathy, unspecified; F02.83 Dementia in other diseases classified elsewhere, unspecified severity, with mood disturbance; J45.909 Unspecified asthma, uncomplicated; N40.1 Benign prostatic hyperplasia with lower urinary tract symptoms; R33.8 Other retention of urine; R42 Dizziness and giddiness; W19.XXXA Unspecified fall, initial encounter; M54.9 Dorsalgia, unspecified; I25.10 Atherosclerotic heart disease of native coronary artery without angina pectoris; E78.00 Pure hypercholesterolemia, unspecified; I10 Essential (primary) hypertension; G47.30 Sleep apnea, unspecified; M19.90 Unspecified osteoarthritis, unspecified site; G30.9 Alzheimer's disease, unspecified; I48.0 Paroxysmal atrial fibrillation; K59.00 Constipation, unspecified; E66.01 Morbid (severe) obesity due to excess calories; D64.9 Anemia, unspecified; Z88.8 Allergy status to other drugs, medicaments and biological substances; Z79.01 Long term (current) use of anticoagulants; Z68.35 Body mass index [BMI] 35.0-35.9, adult; Z98.890 Other specified postprocedural states; Z95.5 Presence of coronary angioplasty implant and graft; Z79.899 Other long term (current) drug therapy
CPT/HCPCS: 36415; 51702; 70551; 80048; 82947; 85025; 94640; 94660; 97110-GP; 97112-GP; 97116-GP; 97164-GP; 97165-GO; 97530-GP; 97535-GO; A9270-GY

== ENCOUNTER 2025-09-04 18:23 | Emergency (ER) | payer MEDICARE ==
[2025-09-04 18:50] LABS: BASOPHILS ABSOLUTE AUTO 0.1 x10^3/uL (0.0-0.2); BASOPHILS PERCENT AUTO 0.5 % (0.2-1.2); EOSINOPHILS ABSOLUTE AUTO 0.6 x10^3/uL (0.0-0.5); EOSINOPHILS PERCENT AUTO 5.6 % (0.0-4.0); IMMATURE GRAN ABSOLUTE AUTO 0.16 x10^3/uL (0.00-0.07); IMMATURE GRAN PERCENT AUTO 1.50 % (0.00-0.43); LYMPHOCYTES ABSOLUTE AUTO 1.1 x10^3/uL (1.0-4.8); LYMPHOCYTES PERCENT AUTO 10.7 % (25.0-50.0); MONOCYTES ABSOLUTE AUTO 1.1 x10^3/uL (0.0-0.8); MONOCYTES PERCENT AUTO 10.0 % (2.0-11.0); NEUTROPHILS ABSOLUTE AUTO 7.6 x10^3/uL (1.8-7.7); NEUTROPHILS PERCENT AUTO 71.7 % (50.0-80.0); PLATELET COUNT,PLT 174 x10^3/uL (130-400); RED BLOOD CELL COUNT 4.24 x10^6/uL (4.5-6.0); WHITE BLOOD CELL COUNT,WBC 10.6 x10^3/uL (4.0-10.0)
[2025-09-04 19:03] LABS: A/G RATIO 0.76; ALANINE AMINOTRANSFERASE,ALT 22 U/L (16-63); ASPARTATE AMNIOTRANSFERASE,AST 20 U/L (15-37); BILIRUBIN TOTAL 0.7 mg/dL (0.2-1.0); BLOOD UREA NITROGEN,BUN 29 mg/dL (7-18); CARBON DIOXIDE,CO2 28 mmol/L (21-32); CHLORIDE,CL 107 mmol/L (98-107); CREATININE 0.9 mg/dL (0.70-1.30); GLUCOSE RANDOM 96 mg/dL (70-99); POTASSIUM,K 4.2 mmol/L (3.5-5.1); PROTEIN TOTAL,TP 6.5 g/dL (6.4-8.2); SODIUM,NA 143 mmol/L (136-145)
[2025-09-04 19:07] LABS: ESTIMATED GFR 84 mL/min (>=60)
[2025-09-04 23:08] VITALS: BP 142/85; PULSE 61
== END 2025-09-04 21:23 ==
LOC: VM.ED 18:23
DX: E86.0 Dehydration (principal); I10 Essential (primary) hypertension; I25.2 Old myocardial infarction; I25.10 Atherosclerotic heart disease of native coronary artery without angina pectoris; I48.91 Unspecified atrial fibrillation; E66.9 Obesity, unspecified; M19.90 Unspecified osteoarthritis, unspecified site; Z79.899 Other long term (current) drug therapy; Z79.01 Long term (current) use of anticoagulants; Z88.8 Allergy status to other drugs, medicaments and biological substances
CPT/HCPCS: 36415; 71045; 80053; 85025; 96360; 99284; 99285; J7030

== ENCOUNTER 2025-09-12 08:20 | Emergency (ER) | payer MEDICARE ==
[2025-09-12 08:38] VITALS: BP 155/80; PULSE 70
== END 2025-09-12 10:10 ==
LOC: VM.ED 08:20
DX: S51.012A Laceration without foreign body of left elbow, initial encounter (principal); S51.011A Laceration without foreign body of right elbow, initial encounter; I10 Essential (primary) hypertension; I48.91 Unspecified atrial fibrillation; I25.10 Atherosclerotic heart disease of native coronary artery without angina pectoris; E66.9 Obesity, unspecified; J45.909 Unspecified asthma, uncomplicated; M19.90 Unspecified osteoarthritis, unspecified site; Z79.899 Other long term (current) drug therapy; Z79.01 Long term (current) use of anticoagulants; Z88.8 Allergy status to other drugs, medicaments and biological substances; W19.XXXA Unspecified fall, initial encounter
CPT/HCPCS: 12002; 70450; 99284

== ENCOUNTER 2025-09-21 14:36 | Emergency (ER) | payer MEDICARE ==
[2025-09-21 14:58] LABS: BASOPHILS ABSOLUTE AUTO 0.0 x10^3/uL (0.0-0.2); BASOPHILS PERCENT AUTO 0.4 % (0.2-1.2); EOSINOPHILS ABSOLUTE AUTO 0.4 x10^3/uL (0.0-0.5); EOSINOPHILS PERCENT AUTO 3.7 % (0.0-4.0); IMMATURE GRAN ABSOLUTE AUTO 0.15 x10^3/uL (0.00-0.07); IMMATURE GRAN PERCENT AUTO 1.40 % (0.00-0.43); LYMPHOCYTES ABSOLUTE AUTO 1.1 x10^3/uL (1.0-4.8); LYMPHOCYTES PERCENT AUTO 10.7 % (25.0-50.0); MONOCYTES ABSOLUTE AUTO 0.9 x10^3/uL (0.0-0.8); MONOCYTES PERCENT AUTO 8.9 % (2.0-11.0); NEUTROPHILS ABSOLUTE AUTO 7.9 x10^3/uL (1.8-7.7); NEUTROPHILS PERCENT AUTO 74.9 % (50.0-80.0); PLATELET COUNT,PLT 211 x10^3/uL (130-400); RED BLOOD CELL COUNT 4.19 x10^6/uL (4.5-6.0); WHITE BLOOD CELL COUNT,WBC 10.5 x10^3/uL (4.0-10.0)
[2025-09-21 15:19] LABS: A/G RATIO 0.78; ALANINE AMINOTRANSFERASE,ALT 20 U/L (16-63); ASPARTATE AMNIOTRANSFERASE,AST 18 U/L (15-37); BILIRUBIN TOTAL 0.9 mg/dL (0.2-1.0); BLOOD UREA NITROGEN,BUN 26 mg/dL (7-18); CARBON DIOXIDE,CO2 29 mmol/L (21-32); CHLORIDE,CL 106 mmol/L (98-107); CREATININE 0.9 mg/dL (0.70-1.30); GLUCOSE RANDOM 101 mg/dL (70-99); POTASSIUM,K 4.4 mmol/L (3.5-5.1); PROTEIN TOTAL,TP 6.4 g/dL (6.4-8.2); SODIUM,NA 142 mmol/L (136-145)
[2025-09-21 15:25] LABS: ESTIMATED GFR 84 mL/min (>=60)
[2025-09-21 15:46] VITALS: BP 136/80; PULSE 60
[2025-09-21 15:54] LABS: APPEARANCE,URINE CLOUDY (CLEAR); GLUCOSE,URINE NEGATIVE (NEGATIVE); OCCULT BLOOD,URINE TRACE-INTACT (NEGATIVE)
[2025-09-21 16:02] LABS: SQUAMOUS EPITHELIAL CELLS,UR NOT SEEN /HPF (NOT SEEN)
== END 2025-09-21 17:26 ==
LOC: VM.ED 14:36
DX: S00.81XA Abrasion of other part of head, initial encounter (principal); I25.10 Atherosclerotic heart disease of native coronary artery without angina pectoris; I48.91 Unspecified atrial fibrillation; E78.00 Pure hypercholesterolemia, unspecified; I10 Essential (primary) hypertension; Z88.8 Allergy status to other drugs, medicaments and biological substances; Z88.5 Allergy status to narcotic agent; Z79.01 Long term (current) use of anticoagulants; Z79.899 Other long term (current) drug therapy; Z95.1 Presence of aortocoronary bypass graft; W06.XXXA Fall from bed, initial encounter; Y93.89 Activity, other specified
CPT/HCPCS: 36415; 70450; 70486; 80053; 81001; 85025; 99284